=== PATIENT | male | born 1995 | race African-American/Black ===

== ENCOUNTER 2020-12-08 21:31 | Emergency (ER) | payer BC ==
[2020-12-08] MEDS ORDERED: methylPREDNISolone Sod Succ/PF 125 MG/2 ML VIAL ONE (21:59)
[2020-12-08] MEDS ORDERED: Famotidine 20 MG TAB ONE (21:59)
[2020-12-08] MEDS ORDERED: Montelukast Sodium 10 mg Tablet PO SCH (23:15)
== END 2020-12-08 23:55 | disposition home or self-care (01) ==
LOC: BURERS 21:31
DX: R60.0 Localized edema (principal); L50.0 Allergic urticaria; T45.0X5A Adverse effect of antiallergic and antiemetic drugs, initial encounter
CPT/HCPCS: 96374; J2930